=== PATIENT | male | born 1960 | race Caucasian/White ===

== ENCOUNTER 2016-08-29 07:02 | Day surgery (SDC) | payer BC ==
[2016-08-29] MEDS ORDERED: BUPIVACAINE 0.5% W/EPI MPF 30 ML VIAL IVP ONE ×2 (12:28→13:22)
[2016-08-29] MEDS ORDERED: OXYCODONE/APAP 10MG-325MG TABLET PO ONE ×2 (12:28→13:22)
[2016-08-29] MEDS ORDERED: LIDOCAINE 1% W/EPI 1:200,000 MPF 30ML SQ ONE ×2 (12:28→13:22)
[2016-08-29] MEDS ORDERED: DEXAMETHASONE PRESERVATIVE FREE 10MG/ML VIAL IV ONE ×2 (12:28→13:22)
[2016-08-29] MEDS ORDERED: PROPOFOL 10 MG/ML VIAL IV ONE (14:00)
[2016-08-29] MEDS ORDERED: MIDAZOLAM HCL 2MG/2ML VIAL IV ONE (14:00)
[2016-08-29] MEDS ORDERED: *PACU ONLY* KETAMINE HCL 10 MG/ML (20ML) VIAL IV ONE (14:00)
[2016-08-29] MEDS ORDERED: FENTANYL PF 100MCG/2ML VIAL IV ONE (14:00)
--- NOTE | 2016-08-30 10:35 | Operative Note ---
DATE OF SURGERY: 08/29/2016 PREOPERATIVE DIAGNOSIS: Cervical spondylosis without myelopathy. ICD-10 code M47.812. OPERATION: Radiofrequency rhizotomy right cervical facets 3-4, 4-5, 5-6, 6-7. Anesthesia: Local sedation. Anesthesia Provider: Bailee Campuzano CRNA Indication: This patient presents with a history of plate and screws cervical spine at 6-7. Diagnostic studies do show extensive spondylosis. Previous facets series 75% to 90% pain control. Due to failure of all therapy and success of facet series, he presents today for rhizotomy for more long-term relief. SURGERY: Intravenous line, vital sign monitoring, IV sedation, prepped and draped in sterile technique. On imaging, cervical facet levels in the area of pain were identified and marked at 3-4, 4-5, 5-6, 6-7. Each one of these points on the skin infiltrated. A 22 gauge rhizotomy cannula positioned. Stimulation trial was conducted. Rhizotomy burn performed. Local anti-inflammatory in this site. Topical antibiotic and sterile dressing applied. Will monitor and evaluate. Andres Aguero DO CC: Dr. Bull GONZALEZ
== END 2016-08-29 09:58 | disposition home or self-care (01) ==
LOC: SUR 07:02
PROVIDERS: ATTEND Pain Medicine Interventional Pain Medicine
DX: M47.812 Spondylosis without myelopathy or radiculopathy, cervical region (principal); I10 Essential (primary) hypertension; F17.200 Nicotine dependence, unspecified, uncomplicated
CPT/HCPCS: 64633; 64634 ×3; 01936; J1100; J3010

== ENCOUNTER 2019-02-25 08:19 | Day surgery (SDC) | payer BC ==
--- NOTE | 2019-02-25 07:08 | History and Physical - [place] ---
CHIEF COMPLAINT/HISTORY OF CHIEF COMPLAINT: This patient presents with a history of an intractable post lumbar laminectomy syndrome. Due to the failure of all therapy a spinal cord stimulator was implanted on 04/11/16 and although working quite well his pattern of pain was changing which resulted in the inability of the system to control his pain. A new generator is available through [employer] which was felt to provide us with improved stimulation patterns and waveform integration and that this new generator would provided us with better relief. At that point we have decided that swapping and changing the generators to the new Wavewriter would present us with better capabilities of controlling his pain. He is here for a generator exchange. PAST MEDICAL HISTORY: Noncontributory. PAST SURGICAL HISTORY: Lumbar spinal surgery, cervical spine surgery, and knee replacement. EMPLOYMENT STATUS: Retired. MEDICATIONS ON ADMISSION: List to be provided. ALLERGIES: None. FAMILY/PSYCHOSOCIAL HISTORY: Social history - Smoking. Family history - Coronary artery disease, hypertension, and cancer. SYSTEMS REVIEW: The patient seems appropriate in no acute distress. The remainder of the systems review is positive for degenerative arthritis. PHYSICAL EXAMINATION: Height is 6'3", weight is 230. No vital signs. HEENT: Within normal limits. LUNGS: Clear. HEART: Rapid and regular. ABDOMEN: Nontender. MUSCULOSKELETAL: Examination of the musculoskeletal system shows the generator at the right posterior gluteal margin. All incisions are intact. His underlying pain pattern is bilateral lower extremity. There is a motor and sensory abnormality to the left. NEUROLOGIC: Cranial nerves are intact. IMPRESSION: 1. 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 2. SPINAL CORD STIMULATOR AND INTERNAL GENERATOR, NONFUNCTIONAL. PLAN: The patient is here on an outpatient basis for a battery change procedure. The risks, side effects and complications have been reviewed and discussed. JOB NUMBER: [id number] [facility]
[~2019-02-25 08:19] MED LIST: ACETAMINOPHEN 1,000 MG/100 ML BTL IVPB ONE; CEFAZOLIN 1 Gram 1 GM/50 ML BAG IVPB ONE; CEFAZOLIN 2 Gram 2 GM/50 ML BAG IVPB ONE; FAMOTIDINE 20MG TABLET PO ONE; MECLIZINE 25 MG TABLET PO ONE; METOCLOPRAMIDE 10 MG TABLET PO ONE
[2019-02-25] MEDS ORDERED: ALFENTANIL HCL 500 MCG/1ML, 2ML AMP IV ONE (08:20)
[2019-02-25] MEDS ORDERED: GLYCOPYRROLATE 0.2 MG/ML ML IV ONE (08:20)
[2019-02-25] MEDS ORDERED: KETAMINE HCL 100MG/1ML VIAL INJ ONE (08:20)
[2019-02-25] MEDS ORDERED: PROPOFOL 10 MG/ML VIAL IV ONE (08:20)
[2019-02-25] MEDS ORDERED: LIDOCAINE 2% MDV (20MG/ML) 20ML VIAL IV ONE (08:20)
[2019-02-25] MEDS ORDERED: RINGERS SOLUTION,LACTATED 1,000 ML IV ONE (08:30)
[2019-02-25] MEDS ORDERED: ALPRAZOLAM 1 MG TAB PO ONE (09:59)
[2019-02-25] MEDS ORDERED: BUPIVACAINE 0.5% W/EPI MPF 30 ML VIAL SQ ONE (11:25)
[2019-02-25] MEDS ORDERED: LIDOCAINE 1% W/EPI 1:100,000 MDV 20 ML VIAL SQ ONE (11:25)
[2019-02-25] MEDS ORDERED: HYDROCODONE/APAP 7.5/325MG TABLET PO ONE (12:04)
--- NOTE | 2019-03-06 12:52 | Operative Note ---
DATE OF SURGERY: 03/04/2019 PREOPERATIVE DIAGNOSES: 1. Intractable lumbar radiculopathy, ICD10 code M54.16 and M54.17. 2. Spinal cord stimulator internal generator nonfunctional. OPERATION: Fluoroscopic-guided incision, subcutaneous dissection, and removal and replacement of internal pulsed generator for spinal cord stimulator. INDICATION: This patient with a history of intractable lumbar radiculopathy has a [employer] spinal cord stimulator with a previous generator. Over the last number of months, this patient's pain pattern has been progressively increasing moving higher into the low back and lower into the extremities. Multiple attempts to reprogram the system have been unsuccessful in gaining control of the pain. It was felt appropriate that changing the generator to the new generator WaveWriter with greater programmability, more program options, and the ability to superimpose program options would help his pain pattern better. He is here for generator change. PROCEDURE: Intravenous line, vital sign monitoring, IV sedation. Prepped and draped sterile technique. Patient positioned prone. Sterile prep, sterile techniques. The incision at the posterior gluteal margin infiltrated. Incision made and subcutaneous dissection was conducted to the generator. The generator was exteriorized, from the indwelling leads. Antibiotic irrigation, Bovie for hemostasis. The WaveWriter generator placed onto the field and interfaced to the existing leads and connections. The generator was placed in the pouch and then the incision was closed using Stratafix suture 2-0 fascia, 3- 0 skin. Dermabond closure. Complex programming of the system performed over 20 minutes reestablishing stimulation. He was transported to the recovery room stable. No side effects from the procedure or the sedation. DISCHARGE INSTRUCTIONS: 1. Sites to remain clean and dry. No showering or bathing for the next 12-24 hours. At that point, he can shower but not sit in water. 2. Standard medications resumed including the antibiotic Levaquin 500 mg once a day for 14 days. He has been provided with a 7-day prescription of Fieldon for pain control. All other instructions provided. He will be contacted by the office in the morning and set up a time in the next 7-10 days to evaluate the sites. Until then, he is to keep his activities low and controlled. He was then discharged. CARLOS
== END 2019-02-25 12:22 | disposition home or self-care (01) ==
LOC: SUR 08:19
PROVIDERS: ATTEND Pain Medicine Interventional Pain Medicine
DX: M54.16 Radiculopathy, lumbar region (principal); M54.17 Radiculopathy, lumbosacral region; T85.193A Other mechanical complication of implanted electronic neurostimulator, generator, initial encounter; I10 Essential (primary) hypertension; F17.210 Nicotine dependence, cigarettes, uncomplicated
CPT/HCPCS: 63685; 00300; 95972; J0690 ×2; J3490; C1820; J7120